=== PATIENT | female | born 1970 | race Two or more races ===

== ENCOUNTER 2024-01-05 04:00 | Day surgery (SDC) | payer BC, OTHER ==
[2024-01-02 12:59] VITALS: BMI 28.7
[2024-01-05] MEDS ORDERED: BUPIVACAINE HCL/PF 0.5% (5MG/ML) 10 ML VIAL ONE ×2 (07:10→08:51)
[2024-01-05] MEDS ORDERED: LIDOCAINE HCL 1%, 10 MG/ML (20ML VIAL) ONE (07:10)
[2024-01-05] MEDS ORDERED: GENTAMICIN SO4 80 MG/2 ML VIAL ONE (07:10)
[2024-01-05 07:20] VITALS: TEMP 97.8
[2024-01-05] MEDS ORDERED: DEXAMETHASONE SOD PHOSPHATE 10 MG/1 ML VIAL ONE (07:20)
[2024-01-05] MEDS ORDERED: oxyCODONE HCL 5 MG TABLET PO PRN ×2 (07:25)
[2024-01-05] MEDS ORDERED: PROMETHAZINE HCL 25 MG/1 ML VIAL IVPB PRN (07:25)
[2024-01-05] MEDS ORDERED: ONDANSETRON 4 MG/2 ML VIAL IVPUSH PRN (07:25)
[2024-01-05] MEDS ORDERED: ACETAMINOPHEN 1000 MG/100 ML BAG IVPB PRN (07:26)
[2024-01-05] MEDS ORDERED: LACTATED RINGERS SOLUTION 1,000 ML IV SCH (07:30)
[2024-01-05] MEDS ORDERED: MIDAZOLAM HCL 2 MG/2 ML SINGLE DOSE VIAL ONE (07:31)
[2024-01-05] MEDS ORDERED: PROPOFOL 20 ML ONE (07:31)
[2024-01-05] MEDS ORDERED: ceFAZolin SODIUM 1 GM VIAL ONE (07:53)
[2024-01-05] MEDS ORDERED: KETOROLAC TROMETHAMINE 30 MG/1 ML VIAL ONE (07:53)
[2024-01-05] MEDS ORDERED: LIDOCAINE HCL/PF 2% SDV 5ML VIAL ONE (07:53)
[2024-01-05] MEDS: ceFAZolin SODIUM 1 GM VIAL IVPB ONE (08:00)
[2024-01-05] MEDS: LIDOCAINE HCL 1%, 10 MG/ML (20ML VIAL) INF ONE (08:02)
[2024-01-05] MEDS: BUPIVACAINE HCL/PF 0.5% (5MG/ML) 10 ML VIAL IJ ONE (08:02)
[2024-01-05] MEDS: GENTAMICIN SO4 80 MG/2 ML VIAL IVPB ONE (08:11)
[2024-01-05] MEDS ORDERED: DEXAMETHASONE SOD PHOSPHATE 4 MG/1 ML VIAL ONE (08:49)
[2024-01-05] MEDS: DEXAMETHASONE SOD PHOSPHATE 4 MG/1 ML VIAL NR ONE (08:59)
[2024-01-05 09:17] VITALS: RESP 18
[2024-01-05 09:56] VITALS: BP 108/60; PULSE 58
== END 2024-01-05 10:47 | disposition home or self-care (01) ==
LOC: JASU-SURG 04:00
PROVIDERS: ATTEND Podiatrist Foot Surgery
PROC: 0QBP0ZZ Excision of Left Metatarsal, Open Approach (ICD-10-PCS; principal; 2024-01-05 07:30)
DX: M20.12 Hallux valgus (acquired), left foot (principal)
CPT/HCPCS: 73630-TC-LT; 88305-TC; 88311-TC; C1713; J1100

== ENCOUNTER 2024-03-01 04:40 | Day surgery (SDC) | payer BC, OTHER ==
[2024-02-27 15:59] VITALS: BMI 28.7
[2024-03-01] MEDS ORDERED: GENTAMICIN SO4 80 MG/2 ML VIAL ONE ×2 (07:15→08:22)
[2024-03-01] MEDS ORDERED: BUPIVACAINE HCL/PF 0.5% (5MG/ML) 10 ML VIAL ONE ×2 (07:15→08:35)
[2024-03-01] MEDS ORDERED: LIDOCAINE HCL 1%, 10 MG/ML (20ML VIAL) ONE (07:15)
[2024-03-01] MEDS ORDERED: FENTANYL CITRATE/PF 50 MCG/ML VIAL ONE (07:21)
[2024-03-01] MEDS ORDERED: DEXAMETHASONE SOD PHOSPHATE 4 MG/1 ML VIAL ONE ×2 (07:21→08:35)
[2024-03-01] MEDS ORDERED: LIDOCAINE HCL/PF 2% SDV 5ML VIAL ONE (07:21)
[2024-03-01] MEDS ORDERED: ONDANSETRON 4 MG/2 ML VIAL ONE (07:21)
[2024-03-01] MEDS ORDERED: MIDAZOLAM HCL 2 MG/2 ML SINGLE DOSE VIAL ONE (07:22)
[2024-03-01] MEDS ORDERED: PROPOFOL 60 ML ONE (07:22)
[2024-03-01] MEDS: LIDOCAINE HCL 1%, 10 MG/ML (20ML VIAL) INF ONE (07:35)
[2024-03-01] MEDS: BUPIVACAINE HCL/PF 0.5% (5 MG/ML) 30 ML VIAL IJ ONE ×2 (07:35→08:39)
[2024-03-01] MEDS: ceFAZolin SODIUM 1 GM VIAL IVPB ONE (07:39)
[2024-03-01] MEDS ORDERED: BUPIVACAINE HCL/PF 0.25% (2.5MG/ML) 10 ML VIAL ONE (08:35)
[2024-03-01] MEDS ORDERED: DEXAMETHASONE SOD PHOSPHATE 10 MG/1 ML VIAL ONE (08:36)
[2024-03-01] MEDS: DEXAMETHASONE SOD PHOSPHATE 10 MG/1 ML VIAL IVPUSH ONE (08:39)
[2024-03-01] MEDS ORDERED: ONDANSETRON 4 MG/2 ML VIAL IVPUSH PRN (08:49)
[2024-03-01] MEDS ORDERED: oxyCODONE HCL 5 MG TABLET PO PRN (08:49)
[2024-03-01] MEDS: LACTATED RINGERS SOLUTION 1,000 ML IV SCH (09:45)
[2024-03-01 11:07] VITALS: RESP 20
[2024-03-01 11:11] VITALS: BP 136/87; PULSE 79; TEMP 97.1
== END 2024-03-01 11:12 | disposition home or self-care (01) ==
LOC: JASU-SURG 04:40
PROVIDERS: ATTEND Podiatrist Foot Surgery
PROC: 0QSN04Z Reposition Right Metatarsal with Internal Fixation Device, Open Approach (ICD-10-PCS; principal; 2024-03-01 07:30)
DX: M20.11 Hallux valgus (acquired), right foot (principal)
CPT/HCPCS: 73630-TC-RT-FY; 81025; 88305-TC; 88311-TC; 94760; C1713; J1100